=== PATIENT | male | born 1985 | race Caucasian/White ===

== ENCOUNTER 2022-04-08 00:18 | Inpatient (IN) | payer OTHER ==
[2022-04-08] MEDS ORDERED: SODIUM CHLORIDE 0.9% 1000 ML 1,000 ML IV ONE (01:46)
--- NOTE | 2022-04-08 01:54 | Emergency Department Report ---
HPI - General Time Seen by Provider: 04/08/22 01:34 - [facility] HPI: Room 21 The patient is a 36-year-old male presenting with a chief complaint of GI bleed. Patient has a history of peptic ulcer disease and anemia and states this afternoon he noticed melena. Patient states he had a total of 4 melanotic stools and then this evening at 2130 he noticed dyspnea on exertion and dizz iness with standing prompting him to go to his [place] facility. At the [facility] the patient was found to have guaiac positive dark stool on rectal exam was administered Protonix 80 mg IV. Patient was transferred to this ED for further management. Patient states he feels okay while at rest but when he stands up he gets dizzy ED Past Medical Hx - Past Medical History Hx GERD: Yes Additional medical history: Gout, gastric ulcers, GI bleed with transfusion - Surgical History Additional Surgical History: Bilateral foot surgery - Family History Family history: no significant - Social History Smoking Status: Never Smoker Substance Use Type: Marijuana - Medications Home Medications: Home Medications Medication Instructions Recorded Confirmed Last Taken Type Colchicine [Colcrys] 0.6 mg PO DAILY 04/25/14 04/25/14 04/24/14 History Pantoprazole [Protonix] 20 mg PO BID 04/25/14 04/25/14 04/24/14 History Sucralfate [Carafate] 1 gm PO BID 04/25/14 04/25/14 04/24/14 History ED Review of Systems ROS: Stated complaint: GI BLEED Other details as noted in HPI Constitutional: malaise Eyes: denies: eye pain ENT: denies: throat pain Respiratory: SOB with exertion Cardiovascular: dyspnea on exertion. denies: chest pain Endocrine: no symptoms reported Gastrointestinal: melena. denies: abdominal pain, nausea, vomiting Genitourinary: denies: dysuria Musculoskeletal: denies: back pain Neurological: denies: headache Physical Exam - Physical Exam Physical Exam: GENERAL: The patient is well-developed well-nourished male lying on stretcher not appearing to be in acute distress. [] HEENT: Normocephalic. Atraumatic. Extraocular motions are intact. Patient has moist mucous membranes. NECK: Supple. Trachea midline CHEST/LUNGS: Clear to auscultation. There is no respiratory distress noted. HEART/CARDIOVASCULAR: Regular. There is no tachycardia. There is no gallop rub or murmur. ABDOMEN: Abdomen is soft, nontender. Patient has normal bowel sounds. There is no abdominal distention. SKIN: There is no rash. There is no edema. There is no diaphoresis. NEURO: The patient is awake, alert, and oriented. The patient is cooperative. The patient has no focal neurologic deficits. The patient has normal speech. GCS 15 MUSCULOSKELETAL: There is no evidence of acute injury. ED Course - Consultations Consultation #1: 04/08/22 03:01 [facility] 04/08/22 03:25 Case discussed with [facility] physician Dr. Mcbride keep patient at [facility] Consultation #2: 04/08/22 03:25 GI paged 04/08/22 04:[address] Seo ED Medical Decision Making - Lab Data Result diagrams: 04/08/22 01:54 04/08/22 01:54 Laboratory Tests 04/08/22 04/08/22 04/08/22 01:54 01:54 01:54 WBC 33.1 H RBC 3.34 L Hgb 6.4 L Hct 20.5 L MCV 62 L MCH 19 L MCHC 31 L RDW 20.1 H Plt Count 283 PT 14.6 INR 1.00 APTT 33.2 Sodium 138 Potassium 4.4 Chloride 102.4 Carbon Dioxide 21 L Anion Gap 19 BUN 47 H Creatinine 1.4 H Estimated GFR 57 BUN/Creatinine Ratio 34 Glucose 123 H Calcium 8.3 L Total Bilirubin 0.30 AST 7 ALT 13 Alkaline Phosphatase 62 Total Protein 6.1 L Albumin 2.9 L Albumin/Globulin Ratio 0.9 Blood Type Antibody Screen 04/08/22 01:54 WBC RBC Hgb Hct MCV MCH MCHC RDW Plt Count PT INR APTT Sodium Potassium Chloride Carbon Dioxide Anion Gap BUN Creatinine Estimated GFR BUN/Creatinine Ratio Glucose Calcium Total Bilirubin AST ALT Alkaline Phosphatase Total Protein Albumin Albumin/Globulin Ratio Blood Type A POSITIVE Antibody Screen Negative - Differential Diagnosis GI bleed Critical care attestation.: If time is entered above; I have spent that time in minutes in the direct care of this critically ill patient, excluding procedure time. ED Disposition Clinical Impression: GI bleed Disposition: 09 ADMITTED INPATIENT Is pt being admited?: Yes Does the pt Need Aspirin: No Condition: Fair Time of Disposition: 04:09 (Care transferred to hospitalist (Dr. Jack))
[2022-04-08 02:17] LABS: Hematocrit 20.5 % (35.5-45.6); Hemoglobin 6.4 gm/dl (11.8-15.2); Mean Corpuscular HGB Conc 31 % (32-34); Platelet Count 283 K/mm3 (140-440); Red Blood Count 3.34 M/mm3 (3.65-5.03)
[2022-04-08 02:25] LABS: Mean Corpuscular Volume 62 fl (84-94); Red Cell Distribution Width 20.1 % (13.2-15.2)
[2022-04-08 02:31] LABS: Partial Thromboplastin Time 33.2 Sec. (24.2-36.6)
[2022-04-08 02:43] LABS: Albumin 2.9 g/dL (3.9-5); Calcium 8.3 mg/dL (8.4-10.2)
[2022-04-08] MEDS ORDERED: SODIUM CHLORIDE 0.9% 500 ML 500 ML IV ONE (03:26)
[2022-04-08] MEDS: PANTOPRAZOLE 80 MG in SODIUM CHLORIDE 0.9% 100 ML IV SCH ×2 (04:47→16:03)
[2022-04-08 06:57] LABS: Basophils % (Manual) 0 % (0.0-1.8); Total Cells Counted 100
[2022-04-08 06:58] LABS: Anisocytosis 2+; Hypochromasia 3+; Large Platelets Rare; Platelet Estimate Consistent w Auto
--- NOTE | 2022-04-08 07:58 | History and Physical Report ---
History of Present Illness Date of examination: 04/08/22 History of present illness: 36 yo M with pmhx of gout, prior GIB (gastric ulcers), history of H. Pylori (treated) who presented to our facility with melena in his stool. He states that after noticing blood in the toilet, he attempted to rise and suddenly became d kunal. He states that dizziness was associated with weakness and shortness of breath. He stated that he tried to lay down after this but his dizziness did not subside. patient subsequently presented to our facility. He denied any chest pain, headache, nausea, vomiting, hematemsis. He did state that had diarrhea with bloody stool but has not had a bowel movement since yesterday. Remainder of ROS negative except for stated above. 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 This has been difficult to control with probenecid and colchicine. He states that his doctor had recently increased doses of this. He has a remote history of nsaid use however declined taking it for his gout flares. He does take steroids for his flares and states that this was all he took for his most recent one. He does admit to history of gastric ulcers in the past and states he was dx with H Pylori in aug of this year. He does state he was treated by his doctor at the time. PMHx: tophaceous gout, prior GIB (gastric ulcers), history of H. Pylori (treated) PSHx: bilateral foot surgery FHx: reviewed noncontributory SHx: Tobacco use- denies ETOH Use-denies Recreational Drug Use-denies Medications and Allergies Allergies Allergy/AdvReac Type Severity Reaction Status Date / Time No Known Allergies Allergy Verified 04/25/14 07:17 Home Medications Medication Instructions Recorded Confirmed Last Taken Type Colchicine [Colcrys] 0.6 mg PO DAILY 04/25/14 04/25/14 04/24/14 History Pantoprazole [Protonix] 20 mg PO BID 04/25/14 04/25/14 04/24/14 History Sucralfate [Carafate] 1 gm PO BID 04/25/14 04/25/14 04/24/14 History Active Meds: Active Medications Acetaminophen (Acetaminophen 325 Mg Tab) 650 mg PO Q4H PRN PRN Reason: Pain MILD(1-3)/Fever >100.5/MCKEE Pantoprazole Sodium 80 mg/ (Sodium Chloride) 100 mls @ 10 mls/hr IV DIRECT MARCOS Last Admin: 04/08/22 04:47 Dose: 8 mg/hr, 10 mls/hr Ondansetron HCl (Ondansetron 4 Mg/2 Ml Inj) 4 mg IV Q8H PRN PRN Reason: Nausea And Vomiting Oxycodone/Acetaminophen (Oxycodone /Acetaminophen 5-325mg Tab) 1 tab PO Q6H PRN PRN Reason: Pain, Moderate (4-6) Sodium Chloride (Sodium Chloride 0.9% 10 Ml Flush Syringe) 10 ml IV BID MARCOS Sodium Chloride (Sodium Chloride 0.9% 10 Ml Flush Syringe) 10 ml IV PRN PRN PRN Reason: LINE FLUSH Review of Systems All systems: negative (for stated in HPI) Exam - Physical Exam Narrative exam: Physical Exam: VITAL SIGNS: Reviewed. GENERAL: The patient appears normally developed, Vital signs as documented. HEAD: No signs of head trauma. EYES: Pupils are equal. Extraocular motions intact. pale conjunctiva EARS: Hearing grossly intact. MOUTH: Oropharynx is normal. NECK: No adenopathy, no JVD. CHEST: Chest with clear breath sounds bilaterally. No wheezes, rales, or rhonchi. CARDIAC: Regular rate and rhythm. S1 and S2, without murmurs, gallops, or rubs. VASCULAR: No Edema. Peripheral pulses normal and equal in all extremities. ABDOMEN: Soft, non tender and non distended. No rebound or guarding, and no masses palpated. Bowel Sounds normal. MUSCULOSKELETAL: Good range of motion of all major joints. scattered tophi on hands and feet. Painful to palpation. NEUROLOGIC EXAM: Alert and oriented x 4. no focal sensory or strength deficits. PSYCHIATRIC: Mood normal. SKIN: pale skin. detail exam as documented in skin assessment - Constitutional Vitals: Temp Pulse Resp BP Pulse Ox 97.4 F L 90 10 L 109/62 100 04/08/22 07:42 04/08/22 07:42 04/08/22 07:42 04/08/22 07:42 04/08/22 07:42 Results - Labs CBC & Chem 7: 04/08/22 01:54 04/08/22 01:54 Labs: Laboratory Last Values WBC 33.1 K/mm3 (4.5-11.0) H 04/08/22 01:54 RBC 3.34 M/mm3 (3.65-5.03) L 04/08/22 01:54 Hgb 6.4 gm/dl (11.8-15.2) L 04/08/22 01:54 Hct 20.5 % (35.5-45.6) L 04/08/22 01:54 MCV 62 fl (84-94) L 04/08/22 01:54 MCH 19 pg (28-32) L 04/08/22 01:54 MCHC 31 % (32-34) L 04/08/22 01:54 RDW 20.1 % (13.2-15.2) H 04/08/22 01:54 Plt Count 283 K/mm3 (140-440) 04/08/22 01:54 Add Manual Diff Complete 04/08/22 01:54 Total Counted 100 04/08/22 01:54 Seg Neuts % (Manual) 78.0 % (40.0-70.0) H 04/08/22 01:54 Band Neutrophils % 0 % 04/08/22 01:54 Lymphocytes % (Manual) 14.0 % (13.4-35.0) 04/08/22 01:54 Reactive Lymphs % (Man) 0 % 04/08/22 01:54 Monocytes % (Manual) 7.0 % (0.0-7.3) 04/08/22 01:54 Eosinophils % (Manual) 1.0 % (0.0-4.3) 04/08/22 01:54 Basophils % (Manual) 0 % (0.0-1.8) 04/08/22 01:54 Metamyelocytes % 0 % 04/08/22 01:54 Myelocytes % 0 % 04/08/22 01:54 Promyelocytes % 0 % 04/08/22 01:54 Blast Cells % 0 % 04/08/22 01:54 Nucleated RBC % Not Reportable 04/08/22 01:54 Seg Neutrophils # Man 25.8 K/mm3 (1.8-7.7) H 04/08/22 01:54 Band Neutrophils # 0.0 K/mm3 04/08/22 01:54 Lymphocytes # (Manual) 4.6 K/mm3 (1.2-5.4) 04/08/22 01:54 Abs React Lymphs (Man) 0.0 K/mm3 04/08/22 01:54 Monocytes # (Manual) 2.3 K/mm3 (0.0-0.8) H 04/08/22 01:54 Eosinophils # (Manual) 0.3 K/mm3 (0.0-0.4) 04/08/22 01:54 Basophils # (Manual) 0.0 K/mm3 (0.0-0.1) 04/08/22 01:54 Metamyelocytes # 0.0 K/mm3 04/08/22 01:54 Myelocytes # 0.0 K/mm3 04/08/22 01:54 Promyelocytes # 0.0 K/mm3 04/08/22 01:54 Blast Cells # 0.0 K/mm3 04/08/22 01:54 WBC Morphology Not Reportable 04/08/22 01:54 Hypersegmented Neuts Not Reportable 04/08/22 01:54 Hyposegmented Neuts Not Reportable 04/08/22 01:54 Hypogranular Neuts Not Reportable 04/08/22 01:54 Smudge Cells Not Reportable 04/08/22 01:54 Toxic Granulation Not Reportable 04/08/22 01:54 Toxic Vacuolation Not Reportable 04/08/22 01:54 Dohle Bodies Not Reportable 04/08/22 01:54 Pelger-Huet Anomaly Not Reportable 04/08/22 01:54 Devin Rods Not Reportable 04/08/22 01:54 Platelet Estimate Consistent w auto 04/08/22 01:54 Clumped Platelets Not Reportable 04/08/22 01:54 Plt Clumps, EDTA Not Reportable 04/08/22 01:54 Large Platelets Rare 04/08/22 01:54 Giant Platelets Not Reportable 04/08/22 01:54 Platelet Satelliting Not Reportable 04/08/22 01:54 Plt Morphology Comment Not Reportable 04/08/22 01:54 RBC Morphology Not Reportable 04/08/22 01:54 Dimorphic RBCs Not Reportable 04/08/22 01:54 Polychromasia Not Reportable 04/08/22 01:54 Hypochromasia 3+ 04/08/22 01:54 Poikilocytosis Not Reportable 04/08/22 01:54 Anisocytosis 2+ 04/08/22 01:54 Microcytosis 2+ 04/08/22 01:54 Macrocytosis Not Reportable 04/08/22 01:54 Spherocytes Not Reportable 04/08/22 01:54 Pappenheimer Bodies Not Reportable 04/08/22 01:54 Sickle Cells Not Reportable 04/08/22 01:54 Target Cells Not Reportable 04/08/22 01:54 Tear Drop Cells Not Reportable 04/08/22 01:54 Ovalocytes Not Reportable 04/08/22 01:54 Helmet Cells Not Reportable 04/08/22 01:54 Concepcion-Mccune Bodies Not Reportable 04/08/22 01:54 Wilton Rings Not Reportable 04/08/22 01:54 Sheila Cells Not Reportable 04/08/22 01:54 Bite Cells Not Reportable 04/08/22 01:54 Crenated Cell Not Reportable 04/08/22 01:54 Elliptocytes Not Reportable 04/08/22 01:54 Acanthocytes (Spur) Not Reportable 04/08/22 01:54 Rouleaux Not Reportable 04/08/22 01:54 Hemoglobin C Crystals Not Reportable 04/08/22 01:54 Schistocytes Not Reportable 04/08/22 01:54 Malaria parasites Not Reportable 04/08/22 01:54 Lenny Bodies Not Reportable 04/08/22 01:54 Hem Pathologist Commnt No 04/08/22 01:54 PT 14.6 Sec. (12.2-14.9) 04/08/22 01:54 INR 1.00 (0.87-1.13) 04/08/22 01:54 APTT 33.2 Sec. (24.2-36.6) 04/08/22 01:54 Sodium 138 mmol/L (137-145) 04/08/22 01:54 Potassium 4.4 mmol/L (3.6-5.0) 04/08/22 01:54 Chloride 102.4 mmol/L (98-107) 04/08/22 01:54 Carbon Dioxide 21 mmol/L (22-30) L 04/08/22 01:54 Anion Gap 19 mmol/L 04/08/22 01:54 BUN 47 mg/dL (9-20) H 04/08/22 01:54 Creatinine 1.4 mg/dL (0.8-1.3) H 04/08/22 01:54 Estimated GFR 57 ml/min 04/08/22 01:54 BUN/Creatinine Ratio 34 % 04/08/22 01:54 Glucose 123 mg/dL (75-100) H 04/08/22 01:54 Calcium 8.3 mg/dL (8.4-10.2) L 04/08/22 01:54 Total Bilirubin 0.30 mg/dL (0.1-1.2) 04/08/22 01:54 AST 7 units/L (5-40) 04/08/22 01:54 ALT 13 units/L (7-56) 04/08/22 01:54 Alkaline Phosphatase 62 units/L (35-129) 04/08/22 01:54 Total Protein 6.1 g/dL (6.3-8.2) L 04/08/22 01:54 Albumin 2.9 g/dL (3.9-5) L 04/08/22 01:54 Albumin/Globulin Ratio 0.9 % 04/08/22 01:54 Blood Type A POSITIVE 04/08/22 01:54 Antibody Screen Negative 04/08/22 01:54 Crossmatch See Detail 04/08/22 01:54 Assessment and Plan Assessment and plan: Assessment and Plan #Gastrointestinal hemorrhage #Upper GI bleed #Melena #History of gastric ulcers #History of H. pylori #Blood loss anemia - admit hgb: 6.4 - s/p 1.5 L NS, currently hemodynamically stable. - protonix gtt - 1 units prbc given, f/u H/H ordered. 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 - ongoing flare, painful to touch. -Currently taking probenecid and colchicine at OP - hold colchicine and probenicid at this time due to GI and renal issues. - will give solumedrol 40 mg IV qdaily #SIRS - WBC: 33.1, tachy on admission - likely reactive from gout flare. 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 Patient expresses understanding. - Time: +15 min #Advance care planning Disease education conducted, care plan discussed, diagnoses discussed, prognosis discussed, patient is full code, patient acknowledges understanding and agree with care plan, +30 minutes.
[2022-04-08] MEDS ORDERED: ONDANSETRON 4 MG/2 ML INJ IV PRN (09:00)
[2022-04-08] MEDS ORDERED: ACETAMINOPHEN 325 MG TAB PO PRN (09:00)
[2022-04-08] MEDS ORDERED: oxyCODONE /ACETAMINOPHEN 5-325MG TAB PO PRN (09:00)
[2022-04-08] MEDS: methylPREDNISolone Sod Succinate 40 MG/1 ML INJ IV SCH (15:43)
[2022-04-08] MEDS: SODIUM CHLORIDE 0.9% 1000 ML 1,000 ML IV SCH (15:45)
[2022-04-08 18:46] LABS: Hematocrit 21.9 % (35.5-45.6); Hemoglobin 6.9 gm/dl (11.8-15.2)
[2022-04-08] MEDS ORDERED: PROBENECID 500 MG TAB PO SCH (22:00)
[2022-04-09] MEDS: SODIUM CHLORIDE 0.9% 1000 ML 1,000 ML IV SCH (01:35)
[2022-04-09 04:57] LABS: Hematocrit 20.8 % (35.5-45.6); Hemoglobin 6.5 gm/dl (11.8-15.2); Mean Corpuscular HGB Conc 31 % (32-34); Platelet Count 266 K/mm3 (140-440); Red Blood Count 3.18 M/mm3 (3.65-5.03)
[2022-04-09 05:03] LABS: Mean Corpuscular Volume 66 fl (84-94); Red Cell Distribution Width 24.1 % (13.2-15.2)
[2022-04-09 05:18] LABS: BUN/Creatinine Ratio 20; Blood Urea Nitrogen 24 mg/dL (9-20); Calcium 8.2 mg/dL (8.4-10.2); Hemolysis Index 1
[2022-04-09 05:49] LABS: Basophils % (Manual) 0 % (0.0-1.8); Eosinophils % (Manual) 0 % (0.0-4.3); Total Cells Counted 100
[2022-04-09 05:50] LABS: Anisocytosis 2+; Hypochromasia 2+
[2022-04-09 05:51] LABS: Platelet Estimate Consistent w Auto
[2022-04-09] MEDS: PANTOPRAZOLE 80 MG in SODIUM CHLORIDE 0.9% 100 ML IV SCH (05:55)
[2022-04-09] MEDS ORDERED: SODIUM CHLORIDE 0.9% 500 ML 500 ML IV NR (08:37)
--- NOTE | 2022-04-09 08:39 | Progress Note ---
Assessment and Plan Assessment and plan: History of present illness: 36 yo M with pmhx of gout, prior GIB (gastric ulcers), history of H. Pylori (treated) who presented to our facility with melena in his stool. He states that after noticing blood in the toilet, he attempted to rise and suddenly became dizzy. He states that dizziness was associated with weakness and shortness of breath. He stated that he tried to lay down after this but his dizziness did not subside. patient subsequently presented to our facility. He denied any chest pain, headache, nausea, vomiting, hematemsis. He did state that had diarrhea with bloody stool but has not had a bowel movement since yesterday. Remainder of ROS negative except for stated above. 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 This has been difficult to control with probenecid and colchicine. He states that his doctor had recently increased doses of this. He has a remote history of nsaid use however declined taking it for his gout flares. He does take steroids for his flares and states that this was all he took for his most recent one. He does admit to history of gastric ulcers in the past and states he was dx with H Pylori in aug of this year. He does state he was treated by his doctor at the time. Hospital Course: 04/09: Hgb drop this Am to 6.5 today despite transfusion yesterday. Ordered 2 additional units prbc. Recheck H/H in afternoon. Vitals remains stable. Plan for endoscopy by GI today. Also updated nunez doc this AM on phone. Assessment and Plan #Gastrointestinal hemorrhage #Upper GI bleed #Melena #History of gastric ulcers #History of H. pylori #Blood loss anemia - admit hgb: 6.4 - s/p 1.5 L NS, currently hemodynamically stable. - protonix gtt - 1 units prbc given, f/u H/H ordered. 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 - ongoing flare, painful to touch. -Currently taking probenecid and colchicine at OP - hold colchicine and probenicid at this time due to GI and renal issues. - will give solumedrol 40 mg IV qdaily #SIRS - WBC: 33.1, tachy on admission - likely reactive from gout flare. 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 Patient expresses understanding. - Time: +15 min #Advance care planning Disease education conducted, care plan discussed, diagnoses discussed, prognosis discussed, patient is full code, patient acknowledges understanding and agree with care plan, +30 minutes. History Interval history: States he had melena in his stools again overnight. VSS are stable. He is asymptomatic otherwise. Hospitalist Physical - Physical exam Narrative exam: Physical Exam: VITAL SIGNS: Reviewed. GENERAL: The patient appears normally developed, Vital signs as documented. HEAD: No signs of head trauma. EYES: Pupils are equal. Extraocular motions intact. pale conjunctiva EARS: Hearing grossly intact. MOUTH: Oropharynx is normal. NECK: No adenopathy, no JVD. CHEST: Chest with clear breath sounds bilaterally. No wheezes, rales, or rhonchi. CARDIAC: Regular rate and rhythm. S1 and S2, without murmurs, gallops, or rubs. VASCULAR: No Edema. Peripheral pulses normal and equal in all extremities. ABDOMEN: Soft, non tender and non distended. No rebound or guarding, and no masses palpated. Bowel Sounds normal. MUSCULOSKELETAL: Good range of motion of all major joints. scattered tophi on hands and feet. Painful to palpation. NEUROLOGIC EXAM: Alert and oriented x 4. no focal sensory or strength deficits. PSYCHIATRIC: Mood normal. SKIN: pale skin. detail exam as documented in skin assessment - Constitutional Vitals: Temp Pulse Resp BP Pulse Ox 98.4 F 90 20 146/91 100 04/09/22 04:52 04/09/22 04:52 04/09/22 04:52 04/09/22 04:52 04/09/22 04:52 Results - Labs CBC & Chem 7: 04/09/22 04:29 04/09/22 04:29 Labs: Laboratory Last Values WBC 23.2 K/mm3 (4.5-11.0) H 04/09/22 04:29 RBC 3.18 M/mm3 (3.65-5.03) L 04/09/22 04:29 Hgb 6.5 gm/dl (11.8-15.2) L 04/09/22 04:29 Hct 20.8 % (35.5-45.6) L 04/09/22 04:29 MCV 66 fl (84-94) L 04/09/22 04:29 MCH 21 pg (28-32) L 04/09/22 04:29 MCHC 31 % (32-34) L 04/09/22 04:29 RDW 24.1 % (13.2-15.2) H 04/09/22 04:29 Plt Count 266 K/mm3 (140-440) 04/09/22 04:29 Add Manual Diff Complete 04/09/22 04:29 Total Counted 100 04/09/22 04:29 Seg Neuts % (Manual) 92.0 % (40.0-70.0) H 04/09/22 04:29 Band Neutrophils % 0 % 04/09/22 04:29 Lymphocytes % (Manual) 7.0 % (13.4-35.0) L 04/09/22 04:29 Reactive Lymphs % (Man) 0 % 04/09/22 04:29 Monocytes % (Manual) 1.0 % (0.0-7.3) 04/09/22 04:29 Eosinophils % (Manual) 0 % (0.0-4.3) 04/09/22 04:29 Basophils % (Manual) 0 % (0.0-1.8) 04/09/22 04:29 Metamyelocytes % 0 % 04/09/22 04:29 Myelocytes % 0 % 04/09/22 04:29 Promyelocytes % 0 % 04/09/22 04:29 Blast Cells % 0 % 04/09/22 04:29 Nucleated RBC % Not Reportable 04/09/22 04:29 Seg Neutrophils # Man 21.3 K/mm3 (1.8-7.7) H 04/09/22 04:29 Band Neutrophils # 0.0 K/mm3 04/09/22 04:29 Lymphocytes # (Manual) 1.6 K/mm3 (1.2-5.4) 04/09/22 04:29 Abs React Lymphs (Man) 0.0 K/mm3 04/09/22 04:29 Monocytes # (Manual) 0.2 K/mm3 (0.0-0.8) 04/09/22 04:29 Eosinophils # (Manual) 0.0 K/mm3 (0.0-0.4) 04/09/22 04:29 Basophils # (Manual) 0.0 K/mm3 (0.0-0.1) 04/09/22 04:29 Metamyelocytes # 0.0 K/mm3 04/09/22 04:29 Myelocytes # 0.0 K/mm3 04/09/22 04:29 Promyelocytes # 0.0 K/mm3 04/09/22 04:29 Blast Cells # 0.0 K/mm3 04/09/22 04:29 WBC Morphology Not Reportable 04/09/22 04:29 Hypersegmented Neuts Not Reportable 04/09/22 04:29 Hyposegmented Neuts Not Reportable 04/09/22 04:29 Hypogranular Neuts Not Reportable 04/09/22 04:29 Smudge Cells Not Reportable 04/09/22 04:29 Toxic Granulation Not Reportable 04/09/22 04:29 Toxic Vacuolation Not Reportable 04/09/22 04:29 Dohle Bodies Not Reportable 04/09/22 04:29 Pelger-Huet Anomaly Not Reportable 04/09/22 04:29 Devin Rods Not Reportable 04/09/22 04:29 Platelet Estimate Consistent w auto 04/09/22 04:29 Clumped Platelets Not Reportable 04/09/22 04:29 Plt Clumps, EDTA Not Reportable 04/09/22 04:29 Large Platelets Not Reportable 04/09/22 04:29 Giant Platelets Not Reportable 04/09/22 04:29 Platelet Satelliting Not Reportable 04/09/22 04:29 Plt Morphology Comment Not Reportable 04/09/22 04:29 RBC Morphology Not Reportable 04/09/22 04:29 Dimorphic RBCs Not Reportable 04/09/22 04:29 Polychromasia Not Reportable 04/09/22 04:29 Hypochromasia 2+ 04/09/22 04:29 Poikilocytosis Not Reportable 04/09/22 04:29 Anisocytosis 2+ 04/09/22 04:29 Microcytosis 1+ 04/09/22 04:29 Macrocytosis Not Reportable 04/09/22 04:29 Spherocytes Not Reportable 04/09/22 04:29 Pappenheimer Bodies Not Reportable 04/09/22 04:29 Sickle Cells Not Reportable 04/09/22 04:29 Target Cells Not Reportable 04/09/22 04:29 Tear Drop Cells Not Reportable 04/09/22 04:29 Ovalocytes Not Reportable 04/09/22 04:29 Helmet Cells Not Reportable 04/09/22 04:29 [place] Bodies Not Reportable 04/09/22 04:29 [place] Rings Not Reportable 04/09/22 04:29 [place] Cells Not Reportable 04/09/22 04:29 Bite Cells Not Reportable 04/09/22 04:29 Crenated Cell Not Reportable 04/09/22 04:29 Elliptocytes Not Reportable 04/09/22 04:29 Acanthocytes (Spur) Not Reportable 04/09/22 04:29 Rouleaux Not Reportable 04/09/22 04:29 Hemoglobin C Crystals Not Reportable 04/09/22 04:29 Schistocytes Not Reportable 04/09/22 04:29 Malaria parasites Not Reportable 04/09/22 04:29 Lenny Bodies Not Reportable 04/09/22 04:29 Hem Pathologist Commnt No 04/09/22 04:29 PT 14.6 Sec. (12.2-14.9) 04/08/22 01:54 INR 1.00 (0.87-1.13) 04/08/22 01:54 APTT 33.2 Sec. (24.2-36.6) 04/08/22 01:54 Sodium 137 mmol/L (137-145) 04/09/22 04:29 Potassium 4.6 mmol/L (3.6-5.0) 04/09/22 04:29 Chloride 104.0 mmol/L (98-107) 04/09/22 04:29 Carbon Dioxide 21 mmol/L (22-30) L 04/09/22 04:29 Anion Gap 17 mmol/L 04/09/22 04:29 BUN 24 mg/dL (9-20) H 04/09/22 04:29 Creatinine 1.2 mg/dL (0.8-1.3) 04/09/22 04:29 Estimated GFR > 60 ml/min 04/09/22 04:29 BUN/Creatinine Ratio 20 % 04/09/22 04:29 Glucose 124 mg/dL (75-100) H 04/09/22 04:29 Calcium 8.2 mg/dL (8.4-10.2) L 04/09/22 04:29 Total Bilirubin 0.30 mg/dL (0.1-1.2) 04/08/22 01:54 AST 7 units/L (5-40) 04/08/22 01:54 ALT 13 units/L (7-56) 04/08/22 01:54 Alkaline Phosphatase 62 units/L (35-129) 04/08/22 01:54 Total Protein 6.1 g/dL (6.3-8.2) L 04/08/22 01:54 Albumin 2.9 g/dL (3.9-5) L 04/08/22 01:54 Albumin/Globulin Ratio 0.9 % 04/08/22 01:54 Blood Type A POSITIVE 04/08/22 01:54 Antibody Screen Negative 04/08/22 01:54 Crossmatch See Detail 04/08/22 01:54 Microbiology: Microbiology 04/08/22 23:10 Stool Stool Occult Blood (LEVON) - Final Carrasco/IV: Voiding Method Toilet Active Medications - Current Medications Current Medications: Generic Name Dose Route Start Last Admin Trade Name Freq PRN Reason Stop Dose Admin Acetaminophen 650 mg 04/08/22 09:00 Acetaminophen 325 Mg Tab PO Q4H PRN Pain MILD(1-3)/Fever >100.5/MCKEE Pantoprazole Sodium 80 mg/ 100 mls @ 10 mls/hr 04/08/22 05:00 04/09/22 05:55 Sodium Chloride IV 8 mg/hr DIRECT MARCOS 10 mls/hr Administration 8 MG/HR Sodium Chloride 1,000 mls @ 100 mls/hr 04/08/22 14:45 04/09/22 01:35 Nacl 0.9% 1000 Ml IV 100 mls/hr DIRECT MARCOS Administration Sodium Chloride 500 mls @ 0 mls/hr 04/09/22 08:37 Nacl 0.9% 500 Ml IV 04/09/22 08:38 ONCE ONE As Directed Methylprednisolone Sodium Succinate 40 mg 04/08/22 15:00 04/08/22 15:43 Methylprednisolone Sod Succinate 40 Mg/1 Ml Inj IV 40 mg Q24HR MARCOS Administration Ondansetron HCl 4 mg 04/08/22 09:00 Ondansetron 4 Mg/2 Ml Inj IV Q8H PRN Nausea And Vomiting Oxycodone/Acetaminophen 1 tab 04/08/22 09:00 04/08/22 15:43 Oxycodone /Acetaminophen 5-325mg Tab PO 1 tab Q6H PRN Administration Pain, Moderate (4-6) Sodium Chloride 10 ml 04/08/22 10:00 04/08/22 21:43 Sodium Chloride 0.9% 10 Ml Flush Syringe IV 10 ml BID MARCOS Administration Sodium Chloride 10 ml 04/08/22 09:00 Sodium Chloride 0.9% 10 Ml Flush Syringe IV PRN PRN LINE FLUSH
[2022-04-09] MEDS: methylPREDNISolone Sod Succinate 40 MG/1 ML INJ IV SCH (10:20)
--- NOTE | 2022-04-09 10:53 | Consultation ---
DATE OF CONSULTATION: 04/08/2022 REFERRING PHYSICIAN: Dr. Germain Laguna. INDICATION: GI bleed. HISTORY OF PRESENT ILLNESS: The patient is a 36-year-old male with a history of peptic ulcer disease with H. pylori in the past, now being seen for melena. The patient reports started noticing black tarry stools over the last 24-48 hours. He denies any hematemesis. Denies any other source of bleeding. The patient subsequently came to Emergency Room, was noted to be anemic, admitted and GI consulted. The patient has a history of gout with frequent flares and is on probenecid and colchicine. He denies any NSAID use recently. No other specific complaints. PAST MEDICAL HISTORY: 1. Gout. 2. Peptic ulcer disease with H. pylori in the past. MEDICATIONS: Reviewed and updated in chart. ALLERGIES: No known drug allergies. SOCIAL HISTORY: Denies alcohol, tobacco or drug abuse. FAMILY HISTORY: Colon cancer, IBD, liver disease. REVIEW OF SYSTEMS: GENERAL: Reports some weakness. HEENT: Denies visual complaints or tinnitus. PULMONARY: No shortness of breath or chest pain. GASTROINTESTINAL: Reports melena, rectal bleeding. All points of 13-point review of system otherwise negative. PHYSICAL EXAMINATION: VITAL SIGNS: Temperature of 98.7, pulse 90, respirations 18, blood pressure 122/76. GENERAL: Fairly nourished, obese male, in no acute distress. HEENT: Pupils round and reactive. PULMONARY: Clear. CARDIOVASCULAR: Regular rate and rhythm. Normal S1, S2. ABDOMEN: Soft. SKIN: No obvious rashes. LABORATORY DATA: Pertinent for white count of 33, hemoglobin and hematocrit of 18 and 6, platelet count of 283. Coags within normal limits. Chem-7 pertinent for BUN and creatinine of 47 and 1.4, otherwise normal LFTs, within normal limits. ASSESSMENT: A 36-year-old male presents with a history of upper gastrointestinal bleed secondary to Helicobacter pylori, now presents with melena and anemia. the patient does have a high white count, unclear as to why that is at this time, whether or not this is related to his gout is unclear. PLAN: 1. Follow hematocrit and transfuse as needed to get hemoglobin over 7. 2. PPI IV b.i.d. 3. Avoid NSAIDs and aspirin. 4. If white count stable and no other specific complaints, plan EGD in a.m. TID: [id number] RECEIPT: [id number] CAB/STD/UPE cc: Omer WONG
[2022-04-09] MEDS ORDERED: EPINEPHrine 1 MG/10 ML SYRINGE ONE (11:58)
[2022-04-09] MEDS ORDERED: propofoL 200 MG/20 ML VIAL IV ONE (14:05)
[2022-04-09] MEDS ORDERED: LIDOCAINE MPF (2%) 20 MG/1 ML VIAL 5 ML ONE (14:05)
--- NOTE | 2022-04-09 14:39 | Post Operative Note ---
Pre-op diagnosis: gi bleed Post-op diagnosis: same Findings: EGD: hiatal hernia - 12 mm mainly white based slightly cratered ulcer with central pigmented area distal gastric body, most likely bleeding source - noted 2 white based ulcer antrum (7-8 mm) w/o bleeding stigmata - moderate gastritis (bx's) - negative other Procedure: EGD w/ bx Anesthesia: MAC Surgeon: CHAD SHORT Estimated blood loss: none Pathology: none Specimen disposition: to lab Disposition: floor
--- NOTE | 2022-04-09 15:15 | Operative Report ---
DATE OF SURGERY: 04/09/2022 PROCEDURE: EGD with cold biopsies. INDICATIONS: 1. Anemia. 2. Gastrointestinal bleed. MEDICATIONS: Propofol per BIOCHEMIST. COMPLICATIONS: None. DESCRIPTION OF PROCEDURE: The patient was brought to the procedure suite. The patient had the procedure discussed with him at length. All risks, complications, and benefits discussed, after which the patient signed for the procedure to be performed. The patient was placed in left lateral decubitus position. Mouth block placed in the patient's oral cavity. After adequate sedation with medication as above, endoscope placed in the mouth and brought to level of second portion of duodenum. Retroflexion view performed. The patient's vital signs remained stable throughout the procedure. FINDINGS: There was a small hiatal hernia at GE junction 38 cm from the gums. Esophagus otherwise appeared to be normal. In the distal gastric body there was noted to be a 12 mm, mainly white base, slightly cratered ulcer with a pigmented area. This most likely is the source of bleeding. No interventions were needed at this time. There were 2 small 7-8 mm white based ulcers noted in the antrum. There was moderate antral gastritis noted. Biopsies were taken in the antrum and sent for pathology. Remaining stomach otherwise appeared to be normal. The duodenum appeared to be normal. Retroflexion view performed in the stomach showed no other pathology other than noted above. The patient tolerated the procedure well. No complications during the procedure. IMPRESSION: 1. Hiatal hernia. 2. Otherwise, normal esophagus. 3. Ulcers x 3 as noted above, without bleeding stigmata this time requiring treatment. 4. Gastritis, biopsies performed. 5. Otherwise, normal esophagogastroduodenoscopy. RECOMMENDATIONS: 1. Follow up biopsy results. 2. If H. pylori positive, we will treat. 3. PPI IV b.i.d. 4. Advance diet as tolerated. 5. If H and H stable in a.m., okay to discharge from GI standpoint. TID: [id number] RECEIPT: [id number] CAB/SAY
--- NOTE | 2022-04-09 16:31 | Anesthesia Consultation ---
Anesthesia Consult and Med Hx Date of service: 04/09/22 - Airway Anesthetic Teeth Evaluation: Poor ROM Head & Neck: Adequate Mental/Hyoid Distance: Adequate Mallampati Class: Class III Intubation Access Assessment: Possibly Difficult (Seen preoperatively. Late entry.) - Pulmonary Exam CTA: Yes - Cardiac Exam Cardiac Exam: RRR - Pre-Operative Health Status ASA Pre-Surgery Classification: ASA3 Proposed Anesthetic Plan: General, MAC - Pulmonary Hx Smoking: No Hx Sleep Apnea: No - Cardiovascular System Hx Hypertension: No Hx Cardia Arrhythmia: No - Central Nervous System Hx Neuromuscular Disorder: Yes (severe gout with multiple tophi fingers and toes. ) - Gastrointestinal Hx Ulcer: Yes (H/o stomach ulcer due to steroid injection for severe gout per patient. ) Hx Gastroesophageal Reflux Disease: Yes - Endocrine Hx Renal Disease: No Hx Liver Disease: No Hx Insulin Dependent Diabetes: No Hx Non-Insulin Dependent Diabetes: No - Hematic Hx Anemia: Yes (h/o melena; hgb 6.5) - Other Systems Hx Alcohol Use: No Hx Obesity: Yes - Additional Comments Anesthesia Medical History Comments: No GAC. No FHAC.
--- NOTE | 2022-04-09 16:31 | Anesthesia Day of Surgery ---
Anesthesia Day of Surgery - Day of Surgery Patient Examined: Yes Patient H&P Reviewed: Yes Patient is NPO: Yes
--- NOTE | 2022-04-09 18:58 | Post Anesthesia Evaluation ---
- Post Anesthesia Evaluation Patient Participated: Yes Airway Patent: Yes Stable Respiratory Function: Yes Nausea/Vomiting: No Temp > 96.8F: Yes Pain Manageable: Yes Adequeate Hydration: Yes Anesthesia Complications: No Block Receding Appropriately: Not Applicable Patient on Ventilator: No
[2022-04-10] MEDS: methylPREDNISolone Sod Succinate 40 MG/1 ML INJ IV SCH (09:12)
[2022-04-10 09:42] LABS: Hematocrit 27.8 % (35.5-45.6); Hemoglobin 8.7 gm/dl (11.8-15.2); Mean Corpuscular HGB Conc 31 % (32-34); Platelet Count 328 K/mm3 (140-440); Red Blood Count 3.99 M/mm3 (3.65-5.03)
[2022-04-10 09:43] LABS: Mean Corpuscular Volume 70 fl (84-94)
--- NOTE | 2022-04-10 11:05 | Discharge Summary ---
Providers - Providers Date of Admission: 04/08/22 07:52 Date of discharge: 04/10/22 Attending physician: LUKAS LOUISE MD 04/08/22 03:25 Consult to Physician [CONS] Urgent Comment: Consulting Provider: ROMEL YAN Physician Instructions: Reason For Exam: GI bleed Hospitalization Reason for admission: melena Condition: Fair Hospital course: History of present illness: 36 yo M with pmhx of gout, prior GIB (gastric ulcers), history of H. Pylori (treated) who presented to our facility with melena in his stool. He states that after noticing blood in the toilet, he attempted to rise and suddenly became dizzy. He states that dizziness was associated with weakness and shortness of breath. He stated that he tried to lay down after this but his dizziness did not subside. patient subsequently presented to our facility. He denied any chest pain, headache, nausea, vomiting, hematemsis. He did state that had diarrhea with bloody stool but has not had a bowel movement since yesterday. Remainder of ROS negative except for stated above. 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 This has been difficult to control with probenecid and colchicine. He states that his doctor had recently increased doses of this. He has a remote history of nsaid use however declined taking it for his gout flares. He does take steroids for his flares and states that this was all he took for his most recent one. He does admit to history of gastric ulcers in the past and states he was dx with H Pylori in aug of this year. He does state he was treated by his doctor at the time. Hospital Course: 04/09: Hgb drop this Am to 6.5 today despite transfusion yesterday. Ordered 2 additional units prbc. Recheck H/H in afternoon. Vitals remains stable. Plan for endoscopy by GI today. Also updated welch doc this AM on phone. 04/10: VSS, hgb stable to 8.3. Endoscopy report demonstrated 10 mm white based ulcer with central pigmentation, 2 white based ulcers in the antrum (7-8) mm) without bleeding, and gastritis. Discharge today. Rx for protonix 40 mg po bid and percocet pain rx for active gout. Advised to follow up outpatient with GI. 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 Advised to follow up with primary care physician in 1-2 weeks. Assessment and Plan #Gastrointestinal hemorrhage #Upper GI bleed #Melena #Gastric ulcer #Gastritis #History of H. pylori #Blood loss anemia - admit hgb: 6.4, 8.3 on discharge. - s/p 1.5 L NS, currently hemodynamically stable. - protonix gtt - 1 units prbc given, f/u H/H ordered. 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 - ongoing flare, painful to touch. -Currently taking probenecid and colchicine at OP - hold colchicine and probenicid at this time due to GI and renal issues. - will give solumedrol 40 mg IV qdaily #SIRS - WBC: 33.1, tachy on admission - likely reactive from gout flare. 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 Patient expresses understanding. - Time: +15 min #Advance care planning Disease education conducted, care plan discussed, diagnoses discussed, prognosis discussed, patient is full code, patient acknowledges understanding and agree with care plan, +30 minutes. Disposition: 01 HOME / SELF CARE / HOMELESS Final Discharge Diagnosis (Prints w/discharge instructions): Upper GI bleed, blood loss anemia, gastric ulcer Time spent for discharge: 35 Core Measure Documentation - Palliative Care Palliative Care/ Comfort Measures: Not Applicable - Core Measures Any of the following diagnoses?: none Exam - Physical Exam Narrative exam: Physical Exam: VITAL SIGNS: Reviewed. GENERAL: The patient appears normally developed, Vital signs as documented. HEAD: No signs of head trauma. EYES: Pupils are equal. Extraocular motions intact. pale conjunctiva EARS: Hearing grossly intact. MOUTH: Oropharynx is normal. NECK: No adenopathy, no JVD. CHEST: Chest with clear breath sounds bilaterally. No wheezes, rales, or rhonchi. CARDIAC: Regular rate and rhythm. S1 and S2, without murmurs, gallops, or rubs. VASCULAR: No Edema. Peripheral pulses normal and equal in all extremities. ABDOMEN: Soft, non tender and non distended. No rebound or guarding, and no masses palpated. Bowel Sounds normal. MUSCULOSKELETAL: Good range of motion of all major joints. scattered tophi on hands and feet. Painful to palpation. NEUROLOGIC EXAM: Alert and oriented x 4. no focal sensory or strength deficits. PSYCHIATRIC: Mood normal. SKIN: pale skin. detail exam as documented in skin assessment - Constitutional Vitals: Temp Pulse Resp BP Pulse Ox 97.8 F 76 20 144/91 96 04/10/22 04:58 04/10/22 08:15 04/10/22 04:58 04/10/22 08:15 04/10/22 08:15 Plan Follow up with: REBEKAH WELCH [Other] - 7 Days CHAD SHORT MD [Staff Physician] - 7 Days Forms: Accompanied Note Prescriptions: Oxycodone HCl/Acetaminophen [Percocet 10/325 mg] 1 each PO Q6HR PRN 3 Days #12 tab PRN Reason: Pain Pantoprazole [Protonix] 40 mg PO BID 30 Days #60 tablet
[2022-04-10 11:47] LABS: Total Cells Counted 100
[2022-04-10 11:48] LABS: Anisocytosis 3+; Basophils % (Manual) 0 % (0.0-1.8); Hypochromasia 2+; Platelet Estimate Consistent w Auto; Target Cells Few
--- NOTE | 2022-04-10 11:53 | Gastroenterology Progress Note ---
Assessment and Plan 1. GI: UGI bleed w/ PUD on egd - h/h stable overnight - PPI bid as outpt - bland diet, advance as tolerated \- ok to dc from GI standpoint, will sign okff, call if needed Subjective Date of service: 04/10/22 Interval history: - no GI complaints overnight including signs bleeding Objective - Constitutional Vitals: Temp Pulse Resp BP Pulse Ox 97.8 F 76 20 144/91 96 04/10/22 04:58 04/10/22 08:15 04/10/22 04:58 04/10/22 08:15 04/10/22 08:15 General appearance: no acute distress - EENT Eyes: PERRL - Respiratory Respiratory: bilateral: CTA - Cardiovascular Rhythm: regular Heart Sounds: Present: S1 & S2 - Gastrointestinal General gastrointestinal: Present: soft, non-tender, non-distended - Labs CBC & Chem 7: 04/10/22 09:01 04/09/22 04:29 Labs: Laboratory Results - last 24 hr 04/08/22 04/10/22 01:54 09:01 WBC 21.4 H RBC 3.99 Hgb 8.7 L Hct 27.8 L D MCV 70 L MCH 22 L MCHC 31 L RDW 28.0 H Plt Count 328 Add Manual Diff Complete Total Counted 100 Seg Neuts % (Manual) 78.0 H Band Neutrophils % 0 Lymphocytes % (Manual) 15.0 Reactive Lymphs % (Man) 0 Monocytes % (Manual) 6.0 Eosinophils % (Manual) 1.0 Basophils % (Manual) 0 Metamyelocytes % 0 Myelocytes % 0 Promyelocytes % 0 Blast Cells % 0 Nucleated RBC % Not Reportable Seg Neutrophils # Man 16.7 H Band Neutrophils # 0.0 Lymphocytes # (Manual) 3.2 Abs React Lymphs (Man) 0.0 Monocytes # (Manual) 1.3 H Eosinophils # (Manual) 0.2 Basophils # (Manual) 0.0 Metamyelocytes # 0.0 Myelocytes # 0.0 Promyelocytes # 0.0 Blast Cells # 0.0 WBC Morphology Not Reportable Hypersegmented Neuts Not Reportable Hyposegmented Neuts Not Reportable Hypogranular Neuts Not Reportable Smudge Cells Not Reportable Toxic Granulation Not Reportable Toxic Vacuolation Not Reportable Dohle Bodies Not Reportable Pelger-Huet Anomaly Not Reportable Devin Rods Not Reportable Platelet Estimate Consistent w auto Clumped Platelets Not Reportable Plt Clumps, EDTA Not Reportable Large Platelets Not Reportable Giant Platelets Not Reportable Platelet Satelliting Not Reportable Plt Morphology Comment Not Reportable RBC Morphology Not Reportable Dimorphic RBCs Not Reportable Polychromasia 1+ Hypochromasia 2+ Poikilocytosis Not Reportable Anisocytosis 3+ Microcytosis 1+ Macrocytosis Not Reportable Spherocytes Not Reportable Pappenheimer Bodies Not Reportable Sickle Cells Not Reportable Target Cells Few Tear Drop Cells Not Reportable Ovalocytes Not Reportable Helmet Cells Not Reportable [place] Bodies Not Reportable [place] Rings Not Reportable Sheila Cells Not Reportable Bite Cells Not Reportable Crenated Cell Not Reportable Elliptocytes Not Reportable Acanthocytes (Spur) Not Reportable Rouleaux Not Reportable Hemoglobin C Crystals Not Reportable Schistocytes Not Reportable Malaria parasites Not Reportable Lenny Bodies Not Reportable Hem Pathologist Commnt No Blood Type A POSITIVE Antibody Screen Negative Crossmatch See Detail
[2022-04-10 13:26] VITALS: BP 162/103
[2022-04-10] MEDS ORDERED: PANTOPRAZOLE 40 MG TAB PO SCH (16:30)
== END 2022-04-10 18:23 | disposition home or self-care (01) | DRG 377 ==
LOC: ED 00:18 → 4A 07:52
PROVIDERS: ADMIT Internal Medicine; ATTEND Internal Medicine
PROC: 30233N1 Transfusion of Nonautologous Red Blood Cells into Peripheral Vein, Percutaneous Approach (ICD-10-PCS; 2022-04-08)
PROC: 0DB68ZX Excision of Stomach, Via Natural or Artificial Opening Endoscopic, Diagnostic (ICD-10-PCS; principal; 2022-04-09)
DX: K25.4 Chronic or unspecified gastric ulcer with hemorrhage (principal); N17.0 Acute kidney failure with tubular necrosis; R65.10 Systemic inflammatory response syndrome (SIRS) of non-infectious origin without acute organ dysfunction; M10.9 Gout, unspecified; E66.01 Morbid (severe) obesity due to excess calories; Z68.39 Body mass index [BMI] 39.0-39.9, adult; K21.9 Gastro-esophageal reflux disease without esophagitis; Z71.3 Dietary counseling and surveillance; K44.9 Diaphragmatic hernia without obstruction or gangrene; K29.71 Gastritis, unspecified, with bleeding; D50.0 Iron deficiency anemia secondary to blood loss (chronic)
CPT/HCPCS: 36415; 80048; 80053; 82270; 85007; 85014; 85018; 85025; 85610; 85730; 86850; 86900; 86901; 86920; 88305; G0378; C9113; J0171; J2704; J2920; J7030; J7040; P9016